=== PATIENT | female | born 1970 | race Asian ===

== ENCOUNTER 2018-03-07 12:03 | Inpatient (IN) | payer BC ==
[~2018-03-07] VITALS: Ht 154.9 cm; Wt 82.2 kg
[~2018-03-07 12:03] MED LIST: LISI40TA PO; MORP15TA3 PO
[2018-03-07 12:41] VITALS: BP 141/96
[2018-03-07] MEDS: OXYcodone/APAP 5/325MG TABLET PO PRN ×2 (14:14→18:06)
[2018-03-07 15:38] LABS: BASOPHILS # (AUTO) 0.05 x10^3/uL (0-0.1); BASOPHILS % (AUTO) 1 % (0-1); EOSINOPHILS # (AUTO) 0.17 x10^3/uL (0-0.4); EOSINOPHILS % (AUTO) 2 % (1-7); LYMPHOCYTES % (AUTO) 30 % (22-44); MD NO; MEAN CORPUSCULAR VOLUME 84.7 fL (80-100); MEAN PLATELET VOLUME 7.9 fL (7.4-10.4); MONOCYTES # (AUTO) 0.51 x10^3/uL (0.2-0.8); MONOCYTES % (AUTO) 6 % (2-9); NEUTROPHILS % (AUTO) 62 % (42-75); PLATELET COUNT 225 x10^3/uL (130-400); RED BLOOD COUNT 4.83 x10^6/uL (3.82-5.3); RED CELL DISTRIBUTION WIDTH 12.3 % (9.6-15.2)
[2018-03-07 15:40] LABS: ALBUMIN 3.8 g/dL (3.4-5.0); ANION GAP 8 mmol/L (5-15); CALCIUM 8.4 mg/dL (8.5-10.1); CHLORIDE 105 mmol/L (98-107)
[2018-03-07] MEDS ORDERED: ACETAMINOPHEN 325 MG TABLET PO PRN (19:00)
[2018-03-07] MEDS ORDERED: hydrALAzine 20 MG/ML, 1ML IVPush PRN (19:00)
[2018-03-07] MEDS ORDERED: ONDANSETRON ODT 4 MG PO PRN (19:00)
[2018-03-07] MEDS ORDERED: ENALAPRILAT 1.25 MG/ML, 2ML IVPush PRN (19:00)
[2018-03-07] MEDS ORDERED: DOCUSATE 100 MG CAPSULE PO PRN (19:00)
[2018-03-07] MEDS ORDERED: ONDANSETRON 2MG/ML, 2ML IVPush PRN (19:00)
[2018-03-07] MEDS ORDERED: LABETALOL 5MG/ML, 20ML IVPush PRN (19:00)
[2018-03-07] MEDS ORDERED: BISACODYL 10 MG SUPP PR PRN (19:00)
[2018-03-07] MEDS ORDERED: HYDROCORTISONE 100 MG INJ. IVPush ONE (19:30)
[2018-03-07] MEDS ORDERED: DIPHENHYDRAMINE 50 MG/ML, 1ML IVPush ONE ×2 (19:30→22:30)
[2018-03-07 20:12] LABS: PLATELET (PFA) 225 x10^3/uL (130-400)
[2018-03-07 20:30] VITALS: BP 131/88
[2018-03-07 20:44] VITALS: BP 126/84
[2018-03-07 20:47] VITALS: BP 132/84
[2018-03-07 21:27] VITALS: BP 136/81
[2018-03-07 22:15] VITALS: BP 132/85
[2018-03-08] VITALS (8 sets, daily range): BP systolic 134–170; BP diastolic 84–98
[2018-03-08 05:43] LABS: BASOPHILS # (AUTO) 0.06 x10^3/uL (0-0.1); BASOPHILS % (AUTO) 1 % (0-1); EOSINOPHILS # (AUTO) 0.01 x10^3/uL (0-0.4); EOSINOPHILS % (AUTO) 0 % (1-7); LYMPHOCYTES % (AUTO) 12 % (22-44); MD NO; MEAN CORPUSCULAR HEMOGLOBIN 28.6 pg (27.0-34.8); MEAN CORPUSCULAR HGB CONC 33.5 g/dL (32.4-35.8); MEAN CORPUSCULAR VOLUME 85.3 fL (80-100); MEAN PLATELET VOLUME 8.4 fL (7.4-10.4); MONOCYTES # (AUTO) 0.26 x10^3/uL (0.2-0.8); MONOCYTES % (AUTO) 3 % (2-9); NEUTROPHILS # (AUTO) 8.88 x10^3/uL (1.8-6.8); NEUTROPHILS % (AUTO) 85 % (42-75); PLATELET COUNT 248 x10^3/uL (130-400); RED BLOOD COUNT 5.14 x10^6/uL (3.82-5.3); RED CELL DISTRIBUTION WIDTH 12.2 % (9.6-15.2)
[2018-03-08] MEDS: morphine SULFATE 10 MG/ML, 1ML IVPush PRN ×4 (07:56→23:41)
[2018-03-08] MEDS: LISINOPRIL 20 MG TABLET PO SCH (09:00)
[2018-03-08] MEDS ORDERED: BUPIVACAINE/PF 0.5% ONE (09:27)
[2018-03-08] MEDS ORDERED: EPINEPHRINE 1 MG/ML, 1ML ONE (09:27)
[2018-03-08] MEDS ORDERED: BACITRACIN 50,000 UNIT ONE (09:27)
[2018-03-08] MEDS ORDERED: THROMBIN 5,000 UNIT VIAL TP ONE (09:27)
[2018-03-08] MEDS ORDERED: MIDAZOLAM 1 MG/ML, 2ML ONE (12:36)
[2018-03-08] MEDS ORDERED: FENTANYL PF 250 MCG/5ML ONE ×2 (12:36→14:07)
[2018-03-08] MEDS ORDERED: DIPHENHYDRAMINE 25 MG CAPSULE PO ONE ×2 (13:30→23:30)
[2018-03-08] MEDS ORDERED: ACETAMINOPHEN 325 MG TABLET PO PRN ×2 (13:30→23:30)
[2018-03-08] MEDS ORDERED: LABETALOL 5MG/ML, 20ML IV PRN (13:30)
[2018-03-08] MEDS ORDERED: OXYcodone 5 MG/5 ML ORAL.SOL UDC PO PRN (13:30)
[2018-03-08] MEDS ORDERED: MEPERIDINE/PF 25MG/0.5ML IVPush PRN (13:30)
[2018-03-08] MEDS ORDERED: ACETAMINOPHEN 325 MG TABLET PO ONE (13:30)
[2018-03-08] MEDS ORDERED: HYDROCORTISONE 100 MG INJ. IV ONE (13:30)
[2018-03-08] MEDS ORDERED: ONDANSETRON 2MG/ML, 2ML ONE ×2 (13:38→16:07)
[2018-03-08] MEDS ORDERED: EPHEDRINE 50 MG/ML, 1ML ONE (13:38)
[2018-03-08] MEDS ORDERED: CEFAZOLIN 1,000 MG ONE (13:38)
[2018-03-08] MEDS ORDERED: SUCCINYLCHOLINE 20 MG/ML, 10ML ONE (13:38)
[2018-03-08] MEDS ORDERED: DEXAMETHASONE 4 MG/ML, 5ML ONE (13:38)
[2018-03-08] MEDS ORDERED: PROPOFOL 10 MG/ML, 20ML ONE (13:38)
[2018-03-08] MEDS ORDERED: FACTOR VIIA IVPush ONE ×2 (14:00→16:00)
[2018-03-08] MEDS ORDERED: CEFAZOLIN 1,000 MG IM SCH (14:00)
[2018-03-08] MEDS ORDERED: FENTANYL PF 100 MCG/2ML ONE ×2 (14:42→16:07)
[2018-03-08] MEDS ORDERED: HYDROmorphone 2 MG/ML, 1ML ONE (16:07)
[2018-03-08] MEDS: ONDANSETRON 2MG/ML, 2ML IV PRN ×2 (16:10→16:15)
[2018-03-08] MEDS: FENTANYL PF 100 MCG/2ML IV PRN ×2 (16:18→17:50)
[2018-03-08] MEDS: HYDROmorphone 1 MG/ML, 1ML IV PRN ×5 (16:39→17:29)
[2018-03-08] MEDS ORDERED: OXYcodone 5 MG/5 ML ORAL.SOL UDC ONE (17:39)
[2018-03-08] MEDS: CEFAZOLIN PMX 1GM/50ML 50 ML IVPB SCH (21:40)
[2018-03-09] VITALS (8 sets, daily range): BP systolic 131–156; BP diastolic 80–91
[2018-03-09] MEDS: OXYcodone/APAP 5/325MG TABLET PO PRN ×3 (04:49→19:55)
[2018-03-09] MEDS: CEFAZOLIN PMX 1GM/50ML 50 ML IVPB SCH ×2 (04:54→13:30)
[2018-03-09] MEDS ORDERED: DIPHENHYDRAMINE 25 MG CAPSULE PO ONE (05:00)
[2018-03-09] MEDS ORDERED: HYDROCORTISONE 100 MG INJ. IVPush ONE (05:00)
[2018-03-09] MEDS ORDERED: ACETAMINOPHEN 325 MG TABLET PO ONE (05:00)
[2018-03-09] MEDS ORDERED: DIPHENHYDRAMINE 25 MG CAPSULE PO PRN (07:30)
[2018-03-09 07:54] LABS: BASOPHILS % (AUTO) 0 % (0-1); EOSINOPHILS % (AUTO) 0 % (1-7); LYMPHOCYTES # (AUTO) 0.64 x10^3/uL (1-3.4); LYMPHOCYTES % (AUTO) 5 % (22-44); MD NO; MEAN CORPUSCULAR HEMOGLOBIN 28.2 pg (27.0-34.8); MEAN CORPUSCULAR VOLUME 85.3 fL (80-100); MEAN PLATELET VOLUME 8.7 fL (7.4-10.4); MONOCYTES # (AUTO) 0.46 x10^3/uL (0.2-0.8); MONOCYTES % (AUTO) 3 % (2-9); NEUTROPHILS # (AUTO) 12.92 x10^3/uL (1.8-6.8); NEUTROPHILS % (AUTO) 92 % (42-75); PLATELET COUNT 236 x10^3/uL (130-400); RED BLOOD COUNT 4.32 x10^6/uL (3.82-5.3); RED CELL DISTRIBUTION WIDTH 12.5 % (9.6-15.2)
[2018-03-09 07:59] LABS: PLATELET (PFA) 235 x10^3/uL (130-400)
[2018-03-09] MEDS: LISINOPRIL 20 MG TABLET PO SCH (08:15)
[2018-03-09] MEDS ORDERED: TRANEXAMIC ACID 1300 MG PO SCH (09:00)
[2018-03-10 01:39] VITALS: BP 107/66
[2018-03-10] MEDS: OXYcodone/APAP 5/325MG TABLET PO PRN ×3 (04:08→19:39)
[2018-03-10 05:36] LABS: BASOPHILS # (AUTO) 0.03 x10^3/uL (0-0.1); BASOPHILS % (AUTO) 0 % (0-1); EOSINOPHILS # (AUTO) 0.03 x10^3/uL (0-0.4); EOSINOPHILS % (AUTO) 0 % (1-7); LYMPHOCYTES # (AUTO) 2.47 x10^3/uL (1-3.4); LYMPHOCYTES % (AUTO) 24 % (22-44); MD NO; MEAN CORPUSCULAR HEMOGLOBIN 28.7 pg (27.0-34.8); MEAN CORPUSCULAR HGB CONC 33.5 g/dL (32.4-35.8); MEAN CORPUSCULAR VOLUME 85.6 fL (80-100); MEAN PLATELET VOLUME 8.6 fL (7.4-10.4); MONOCYTES # (AUTO) 0.87 x10^3/uL (0.2-0.8); MONOCYTES % (AUTO) 8 % (2-9); NEUTROPHILS # (AUTO) 6.97 x10^3/uL (1.8-6.8); NEUTROPHILS % (AUTO) 67 % (42-75); PLATELET COUNT 216 x10^3/uL (130-400); RED BLOOD COUNT 4.07 x10^6/uL (3.82-5.3); RED CELL DISTRIBUTION WIDTH 12.8 % (9.6-15.2)
[2018-03-10 06:07] LABS: PLATELET (PFA) 216 x10^3/uL (130-400)
[2018-03-10 06:56] VITALS: BP 136/84
[2018-03-10] MEDS: LISINOPRIL 20 MG TABLET PO SCH (08:59)
[2018-03-10] MEDS: CYCLOBENZAPRINE 10 MG TABLET PO PRN ×2 (08:59→19:39)
[2018-03-10 11:34] VITALS: BP 150/90
[2018-03-10 11:49] VITALS: BP 151/91
[2018-03-10 13:11] VITALS: BP 133/84
[2018-03-10 18:27] VITALS: BP 133/80
[2018-03-11] VITALS (7 sets, daily range): BP systolic 127–156; BP diastolic 80–99
[2018-03-11] MEDS: OXYcodone/APAP 5/325MG TABLET PO PRN ×2 (03:39→11:00)
[2018-03-11 05:09] LABS: PLATELET (PFA) 214 x10^3/uL (130-400)
[2018-03-11 05:15] LABS: BASOPHILS # (AUTO) 0.05 x10^3/uL (0-0.1); BASOPHILS % (AUTO) 1 % (0-1); EOSINOPHILS # (AUTO) 0.21 x10^3/uL (0-0.4); EOSINOPHILS % (AUTO) 3 % (1-7); LYMPHOCYTES % (AUTO) 36 % (22-44); MD NO; MEAN CORPUSCULAR HGB CONC 32.6 g/dL (32.4-35.8); MEAN CORPUSCULAR VOLUME 85.9 fL (80-100); MEAN PLATELET VOLUME 8.4 fL (7.4-10.4); MONOCYTES # (AUTO) 0.62 x10^3/uL (0.2-0.8); MONOCYTES % (AUTO) 8 % (2-9); NEUTROPHILS # (AUTO) 4.38 x10^3/uL (1.8-6.8); NEUTROPHILS % (AUTO) 53 % (42-75); PLATELET COUNT 227 x10^3/uL (130-400); RED BLOOD COUNT 3.99 x10^6/uL (3.82-5.3); RED CELL DISTRIBUTION WIDTH 12.6 % (9.6-15.2)
[2018-03-11] MEDS ORDERED: DIPHENHYDRAMINE 25 MG CAPSULE PO ONE (07:30)
[2018-03-11] MEDS ORDERED: HYDROCORTISONE 100 MG INJ. IV ONE (07:30)
[2018-03-11] MEDS ORDERED: ACETAMINOPHEN 325 MG TABLET PO ONE (07:30)
[2018-03-11] MEDS: LISINOPRIL 20 MG TABLET PO SCH (08:23)
[2018-03-11] MEDS ORDERED: CYCL-259 PO (12:02)
[2018-03-11] MEDS ORDERED: OXYC1TAB7 PO (12:02)
[2018-03-11] MEDS ORDERED: DOCU-131 PO (12:02)
[2018-03-11] MEDS ORDERED: TRANEXAMIC ACID PO (12:02)
[2018-03-11] MEDS ORDERED: ONDA4TAB13 PO (12:02)
== END 2018-03-11 13:40 | disposition home or self-care (01) | DRG 472 ==
LOC: 4NOR 12:03 → DCLOUNGE 03-11 13:25
PROVIDERS: ADMIT Neurological Surgery; ATTEND Neurological Surgery
PROC: 30233R1 Transfusion of Nonautologous Platelets into Peripheral Vein, Percutaneous Approach (ICD-10-PCS; 2018-03-07)
PROC: 0RB30ZZ Excision of Cervical Vertebral Disc, Open Approach (ICD-10-PCS; 2018-03-08)
PROC: 4A11X4G Monitoring of Peripheral Nervous Electrical Activity, Intraoperative, External Approach (ICD-10-PCS; 2018-03-08)
PROC: 0RG10A0 Fusion of Cervical Vertebral Joint with Interbody Fusion Device, Anterior Approach, Anterior Column, Open Approach (ICD-10-PCS; principal; 2018-03-08 14:00)
DX: M47.22 Other spondylosis with radiculopathy, cervical region (principal); Q60.0 Renal agenesis, unilateral; F11.20 Opioid dependence, uncomplicated; D69.1 Qualitative platelet defects; I10 Essential (primary) hypertension; Z80.0 Family history of malignant neoplasm of digestive organs; Z87.11 Personal history of peptic ulcer disease; Z87.442 Personal history of urinary calculi; Z87.891 Personal history of nicotine dependence; Z90.49 Acquired absence of other specified parts of digestive tract; Z90.710 Acquired absence of both cervix and uterus; Z98.1 Arthrodesis status
CPT/HCPCS: 36415; 72040; 80069; 85014; 85025; 85049; 85576; 86850; 86900; 95938; 95941; C1713; J0171; J0690; J1100; J1170; J2250; J2405; J2704; J3010; J3490; J7189; Q0162; C1762; J0330; J1200; J1720; J2270; P9035; Q0163